=== PATIENT | female | born 1950 | race Caucasian/White ===

== ENCOUNTER → 2020-10-23 | Outpatient (CLI) | payer MEDICARE, BC ==
[~2020-10-23] MED LIST: ASA81BEC PO; HYDROXYCHLOROQ200 M1 PO; NEURONTIN100 MG PO; RAMIPRIL2.5 MG PO; TRAMADOL 50 MG50 MG PO; TRAMADOL HCL E200 M1 PO
== END ==
LOC: M.PC 10:49
PROVIDERS: ATTEND Anesthesiology Pain Medicine
DX: M19.90 Unspecified osteoarthritis, unspecified site (principal); G89.4 Chronic pain syndrome; F11.20 Opioid dependence, uncomplicated; M25.542 Pain in joints of left hand; M25.541 Pain in joints of right hand

== ENCOUNTER → 2020-11-20 | Outpatient (CLI) | payer MEDICARE, BC ==
[~2020-11-20] MED LIST changes: +TRAMADOL HCL50 MG PO
== END ==
LOC: M.PC 09:53
PROVIDERS: ATTEND Anesthesiology Pain Medicine
DX: M19.90 Unspecified osteoarthritis, unspecified site (principal); G89.29 Other chronic pain; G62.9 Polyneuropathy, unspecified; F11.20 Opioid dependence, uncomplicated; Z88.8 Allergy status to other drugs, medicaments and biological substances; Z79.899 Other long term (current) drug therapy

== ENCOUNTER → 2020-12-18 | Outpatient (CLI) | payer MEDICARE, BC ==
[2020-12-18 10:58] LABS: ABSOLUTE BASOPHILS 0.1 thou/uL (0.0-0.2); ABSOLUTE EOSINOPHILS 0.1 thou/uL (0.0-0.7); ABSOLUTE LYMPHOCYTES 2.2 thou/uL (0.8-5.3); ABSOLUTE MONOCYTES 0.9 thou/uL (0.0-1.2); ABSOLUTE NEUTROPHILS 4.5 thou/uL (1.6-8.1); BASOPHILS 0.8 %; EOSINOPHILS 0.8 %; HEMATOCRIT 38.1 % (37.0-47.0); HEMOGLOBIN 12.8 gm/dL (12.0-15.0); LYMPHOCYTES 28.7 %; MCH 29.7 pg (26.0-34.0); MCHC 33.7 g/dL (28.0-37.0); MCV 88.1 fL (80.0-100.0); MONOCYTES 12.1 %; MPV 6.7 fl. (7.2-11.1); NUCLEATED RBCS 0 /100WBC; PLATELET COUNT* 255 thou/uL (150-400); POLYS 57.6 %; RBC 4.32 mil/uL (4.20-5.00); RDW-CV 12.9 % (10.5-14.5); WBC 7.8 thou/uL (4.0-11.0)
[2020-12-18 11:38] LABS: ALBUMIN 4.2 g/dL (3.4-5.0); CALCIUM 9.2 mg/dL (8.5-10.1); CREATININE 0.7 mg/dL (0.6-1.3); POTASSIUM 3.9 mmol/L (3.5-5.1); TOTAL BILIRUBIN 0.2 mg/dL (<0.1-1.0); TOTAL PROTEIN 6.7 g/dL (6.4-8.2)
== END ==
LOC: M.PC 10:41
PROVIDERS: ATTEND Anesthesiology Pain Medicine
DX: G89.4 Chronic pain syndrome (principal); M19.041 Primary osteoarthritis, right hand; M19.042 Primary osteoarthritis, left hand; G62.9 Polyneuropathy, unspecified; F11.20 Opioid dependence, uncomplicated; Z79.899 Other long term (current) drug therapy

== ENCOUNTER → 2021-01-15 | Outpatient (CLI) | payer MEDICARE, BC | LOC: M.PC 10:11 | PROVIDERS: ATTEND Anesthesiology Pain Medicine | DX: G89.29 Other chronic pain (principal); M19.90 Unspecified osteoarthritis, unspecified site; G62.9 Polyneuropathy, unspecified; M79.641 Pain in right hand; M79.642 Pain in left hand; F11.20 Opioid dependence, uncomplicated; Z88.8 Allergy status to other drugs, medicaments and biological substances; Z79.899 Other long term (current) drug therapy ==

== ENCOUNTER → 2021-02-12 | Outpatient (CLI) | payer MEDICARE, BC | LOC: M.PC 10:29 | PROVIDERS: ATTEND Anesthesiology Pain Medicine | DX: M19.90 Unspecified osteoarthritis, unspecified site (principal); G89.29 Other chronic pain; M25.551 Pain in right hip; M79.641 Pain in right hand; M79.642 Pain in left hand; F11.20 Opioid dependence, uncomplicated; G61.9 Inflammatory polyneuropathy, unspecified ==

== ENCOUNTER → 2021-03-12 | Outpatient (CLI) | payer MEDICARE, BC | LOC: M.PC 10:43 | PROVIDERS: ATTEND Anesthesiology Pain Medicine | DX: M06.4 Inflammatory polyarthropathy (principal); M25.551 Pain in right hip; M25.552 Pain in left hip; M79.642 Pain in left hand; M79.641 Pain in right hand; G89.29 Other chronic pain; I10 Essential (primary) hypertension; E11.9 Type 2 diabetes mellitus without complications; Z96.642 Presence of left artificial hip joint; Z96.641 Presence of right artificial hip joint; Z79.82 Long term (current) use of aspirin; Z79.899 Other long term (current) drug therapy; Z88.2 Allergy status to sulfonamides ==

== ENCOUNTER → 2021-04-11 | Outpatient (CLI) | payer MEDICARE, BC | LOC: M.PC 04-09 10:30 | PROVIDERS: ATTEND Anesthesiology Pain Medicine | DX: M19.90 Unspecified osteoarthritis, unspecified site (principal); M25.50 Pain in unspecified joint; G89.29 Other chronic pain; Z79.891 Long term (current) use of opiate analgesic; Z79.899 Other long term (current) drug therapy ==

== ENCOUNTER → 2021-05-09 | Outpatient (CLI) | payer MEDICARE, BC ==
[~2021-05-09] MED LIST changes: +TRAMADOL HCL E200 MG PO
== END ==
LOC: M.PC 09:43
PROVIDERS: ATTEND Anesthesiology Pain Medicine
DX: G89.29 Other chronic pain (principal); M13.88 Other specified arthritis, other site; M25.542 Pain in joints of left hand; M25.541 Pain in joints of right hand; I10 Essential (primary) hypertension; E11.9 Type 2 diabetes mellitus without complications; Z90.49 Acquired absence of other specified parts of digestive tract; Z96.643 Presence of artificial hip joint, bilateral

== ENCOUNTER → 2021-06-06 | Outpatient (CLI) | payer MEDICARE, BC | LOC: M.PC 09:21 | PROVIDERS: ATTEND Anesthesiology Pain Medicine | DX: M15.0 Primary generalized (osteo)arthritis (principal); M06.4 Inflammatory polyarthropathy; M25.542 Pain in joints of left hand; M60.9 Myositis, unspecified; M25.541 Pain in joints of right hand; G89.29 Other chronic pain ==

== ENCOUNTER → 2021-07-04 | Outpatient (CLI) | payer MEDICARE, BC | LOC: M.PC 09:20 | PROVIDERS: ATTEND Anesthesiology Pain Medicine | DX: G89.29 Other chronic pain (principal); M06.4 Inflammatory polyarthropathy; M79.641 Pain in right hand; M79.642 Pain in left hand; M19.90 Unspecified osteoarthritis, unspecified site; Z79.899 Other long term (current) drug therapy ==

== ENCOUNTER → 2021-08-01 | Outpatient (CLI) | payer MEDICARE, BC | LOC: M.PC 09:23 | PROVIDERS: ATTEND Anesthesiology Pain Medicine | DX: M06.4 Inflammatory polyarthropathy (principal); G89.29 Other chronic pain; M19.90 Unspecified osteoarthritis, unspecified site; M25.542 Pain in joints of left hand; M25.541 Pain in joints of right hand; Z79.899 Other long term (current) drug therapy; Z88.2 Allergy status to sulfonamides; Z88.8 Allergy status to other drugs, medicaments and biological substances ==

== ENCOUNTER → 2021-09-26 | Outpatient (CLI) | payer MEDICARE, BC ==
[~2021-09-26] MED LIST changes: +MULTI-VITAMIN1 EAC5 PO; +STOOL SOFTENER100 MG PO
== END ==
LOC: M.PC 08-29 09:10
PROVIDERS: ATTEND Anesthesiology Pain Medicine
DX: G89.29 Other chronic pain (principal); M25.559 Pain in unspecified hip; M13.88 Other specified arthritis, other site; M06.4 Inflammatory polyarthropathy; M25.542 Pain in joints of left hand; M25.541 Pain in joints of right hand; I10 Essential (primary) hypertension; E11.9 Type 2 diabetes mellitus without complications; Z90.49 Acquired absence of other specified parts of digestive tract; Z88.8 Allergy status to other drugs, medicaments and biological substances; Z79.899 Other long term (current) drug therapy

== ENCOUNTER → 2021-12-19 | Outpatient (CLI) | payer MEDICARE, BC | LOC: M.PC 09:43 | PROVIDERS: ATTEND Anesthesiology Pain Medicine | DX: G89.29 Other chronic pain (principal); M25.541 Pain in joints of right hand; M06.4 Inflammatory polyarthropathy; M15.0 Primary generalized (osteo)arthritis; Z79.899 Other long term (current) drug therapy; Z88.8 Allergy status to other drugs, medicaments and biological substances ==